=== PATIENT | male | born 1985 | race Caucasian/White ===

== ENCOUNTER 2020-03-10 14:44 | Inpatient (IN) | payer BC, SELFPAY ==
[~2020-03-10] VITALS: Ht 170.2 cm; Wt 79.4 kg
[2020-03-10 14:45] VITALS: BP 125/75
--- NOTE | 2020-03-10 14:45 | NUR ---
BIBA TAKEN TO BED 2
[2020-03-10] MEDS ORDERED: ONDANSETRON 4 MG/2 ML VIAL IVP ONE (14:50)
[2020-03-10] MEDS ORDERED: NACL 0.9% 1,000 ML IV ONE (14:50)
[2020-03-10 14:51] VITALS: BP 152/82
--- NOTE | 2020-03-10 15:01 | NUR ---
Pt biba c/o nausea, vomiting, sob, generalized weakness, chills, body aches since 2 am this morning. Denies fever, or cough. Patient reports he has hx of hypokalemia and takes Potassium supplement only, and he states potassium does not relief his sx this time. SKIN IS PINK/WARM/DRY; AAOX4; HR EVEN AND REGULAR; PT DENIES ANY FEVER, CP, SOB, OR COUGH AT THIS TIME; PATIENT STATES PAIN OF 5/10 AT THIS TIME; VSS; PATIENT POSITIONED FOR COMFORT; HOB ELEVATED; BEDRAILS UP X2; BED DOWN. ER MD MADE AWARE OF PT STATUS.
[2020-03-10] MEDS ORDERED: KETOROLAC 30 MG/ML VIAL IVP ONE (15:10)
[2020-03-10] MEDS ORDERED: LORazepam 2 MG/ML VIAL IVP ONE (15:10)
[2020-03-10 15:14] LABS: BASOPHILS % (AUTO) 0.1 % (0.0-2.0); EOSINOPHILS % (AUTO) 0.1 % (0.0-4.0); HEMATOCRIT 47.4 % (36-52); HEMOGLOBIN 16.1 g/dL (12.0-18.0); LYMPHOCYTES # (AUTO) 1.2 K/uL (2.0-11.5); LYMPHOCYTES % (AUTO) 6.2 % (20.5-51.1); MEAN CORPUSCULAR HEMOGLOBIN 31 pg (27-31); MEAN CORPUSCULAR HGB CONC 34 g/dL (33-37); MEAN CORPUSCULAR VOLUME 90.6 fL (80-94); NEUTROPHILS # (AUTO) 17.8 K/uL (1.8-7.7); NEUTROPHILS % (AUTO) 88.6 % (42.2-75.2); PLATELET COUNT (AUTO) 289 K/uL (140-450); RED BLOOD CELL COUNT(AUTO) 5.23 MIL/uL (4.20-6.10); RED CELL DISTRIBUTION WIDTH 12.9 % (11.6-13.7); WHITE BLOOD COUNT (AUTO) 20.1 K/uL (4.8-10.8)
[2020-03-10 15:26] LABS: ALBUMIN 4.5 g/dL (3.4-5.0); ASPARTATE AMINOTRANSFERASE 21 U/L (15-37); CARBON DIOXIDE 15.8 mmol/L (21-32); CHLORIDE 101 mmol/L (98-107); GFR ARICAN-AMERICAN 109 mL/min (>90); GLUCOSE 148 mg/dL (74-106); SODIUM SERUM 137 mmol/L (136-145); TOTAL BILIRUBIN 1.6 mg/dL (0.0-1.0); UREA NITROGEN, BLOOD 16 mg/dL (7-18)
[2020-03-10] MEDS ORDERED: MAG SULF 2000 MG/WATER PREMIX 50 ML IV ONE ×2 (15:35→16:25)
[2020-03-10] MEDS ORDERED: POTASSIUM CHLORIDE 10 MEQ TABER PO ONE (15:35)
[2020-03-10 15:36] LABS: ANION GAP 21.5 (8-16); POTASSIUM 1.3 mmol/L (3.5-5.1)
[2020-03-10 15:37] LABS: ACETAMINOPHEN < 0.5 ug/ml (10-30); SALICYLATE < 2.8 mg/dL (2.8-20.0)
[2020-03-10] MEDS ORDERED: NACL 0.9% 1,000 ML IV SCH (16:22)
[2020-03-10] MEDS ORDERED: ONDANSETRON 4 MG/2 ML VIAL IM/IVP PRN (16:25)
[2020-03-10] MEDS ORDERED: ACETAMINOPHEN 325 MG TAB PO PRN (16:25)
[2020-03-10] MEDS ORDERED: HYDROcodone/APAP 7.5/325 MG 1 TAB PO PRN (16:25)
[2020-03-10] MEDS ORDERED: POTASSIUM CHLORIDE 20% 40 MEQ/15 ML UDC PO ONE (16:25)
[2020-03-10] MEDS ORDERED: DOCUSATE SODIUM 100 MG GELCAP PO PRN (16:25)
--- NOTE | 2020-03-10 16:38 | NUR ---
ALEXANDRA HOLLAND - PHONE [phone]
--- NOTE | 2020-03-10 16:42 | NUR ---
Dr. Briones is evaluating pt at bedside.
[2020-03-10 16:58] LABS: PROTHROMBIN TIME 10.3 secs (10.8-13.4)
--- NOTE | 2020-03-10 17:00 | NUR ---
COVID SWAB AND TRE SWAB OBTAINED AND SENT TO THE LAB
[2020-03-10 17:03] LABS: CHOL/HDL RATIO 3.7 (1-4.5); FREE T4 (FREE THYROXINE) 2.57 ng/dL (0.76-1.46); HDL CHOLESTEROL 53 mg/dL (40-60); LDL (CALC) 135 mg/dL (60-100); LIPASE 83 U/L (73-393); THYROID STIMULATING HORMONE < 0.01 uIU/mL (0.34-3.74); TRIGLYCERIDES 43 mg/dL (30-150)
[2020-03-10 17:05] LABS: PHOSPHORUS 0.8 mg/dL (2.5-4.9)
--- NOTE | 2020-03-10 17:05 | NUR ---
Phosphorus 0.8--critical value received from lab. Dr Estrada made aware
--- NOTE | 2020-03-10 17:05 | NUR ---
PT POSITIONED COMFORTABLY FOR NAPPING. PT IS ON 2L OXYGEN VIA NASAL CANNULA. PT'S VSS. WILL CONITINUE MONITORING HIS VITAL SIGNS.
[2020-03-10 17:15] VITALS: BP 123/85
[2020-03-10] MEDS ORDERED: POTASSIUM PHOSPHATE 15 MM in NACL 0.9% 250 ML IV ONE (17:30)
[2020-03-10 17:48] LABS: LACTATE DEHYDROGENASE 320 U/L (85-227)
--- NOTE | 2020-03-10 17:52 | NUR ---
Talked to Evgeny pharmacist aware of the order for potassium, he is coming
[2020-03-10] MEDS ORDERED: POTA10TE30 PO (18:11)
[2020-03-10 19:02] LABS: ANION GAP 20.2 (8-16); CARBON DIOXIDE 16.3 mmol/L (21-32); CREATININE 0.9 mg/dL (0.6-1.3)
[2020-03-10 19:14] LABS: MAGNESIUM 2.8 mg/dL (1.8-2.4); PHOSPHORUS 1.2 mg/dL (2.5-4.9)
--- NOTE | 2020-03-10 19:25 | NUR ---
PT REQUESTING TO HAVE AT BEDSIDE, SPOKE WITH NURSING OVERNIGHT CASHIER AND CRN - UNABLE TO COMPLY WITH PT'S WISHES AT THIS TIME D/T COVID REGULATIONS. PT RECEIVED SECOND BAG OF MAG RIDER WHEN ADMITTED, UNABLE TO START K/PHOS IV REPLACEMENT D/T POTENTIAL INTERACTIONS. ER STARTED MG RIDERS WHILE AWAITING PHARMACY TO MAKE K/PHOS BAG. LAB CALLED RE: RECENT K LEVEL, ENDORSED TO [facility] NURSE. PT REQUESTING TO DRINK FLUIDS, UNABLE D/T CURRENT NPO ORDER, ENDORSED TO [facility] NURSE TO CALL DR. LEONARD RE: K LEVEL AND FLUID REQUESTS. PT CURRENTLY IN STABLE CONDITION.
--- NOTE | 2020-03-10 19:25 | NUR ---
RECEIVED PT AAOX4 , UNABLE TO MOVE DUE TO SEVERE WEAKNESS , NID - O2 SAT WNL , BUT THE RR IS 24 , - GIVE O2 AT 2LPM - REFER TO RT FOR FURTHER ASSESSMENT .IV SITE INTACT AND PATENT . SAFETY MEASURES IN PLACE . PLAN OF CARE DISCUSSED AND VERBALIZE UNDERSTANDING . ON TELE MONITOR . PT. AND HIS REQUESTING DISCHARGE AMA - WILL INFORM CHARGE NURSE .
[2020-03-10 19:28] LABS: POTASSIUM 1.5 mmol/L (3.5-5.1)
--- NOTE | 2020-03-10 19:28 | NUR ---
SEE BY RT - RT INCREASE O2 FROM 2 TO 4LPM/ NC - O2 INCREASE FROM 94% TO 98 % WHEN THE TIME O2 INH. INCREASED - WILL CONT. TO MONITOR . AND WILL COMMUNICATE TO DR. LEONARD REGARDING AMA.
[2020-03-10] MEDS ORDERED: POTASSIUM CHLORIDE 20% 40 MEQ/15 ML UDC PO SCH ×2 (20:00→21:00)
--- NOTE | 2020-03-10 21:00 | NUR ---
PT DISCHARGE PER AMA . W/ AMA WAIVER SIGNED BY PT'S - PT. UNABLE TO SIGN THE AMA WAIVER DUE TO SEVERE WEAKNESS OF THE MUSCLES . PT. BLOWER ROOM ATTENDANT BY AND RELATIVE.
[2020-03-11 09:18] LABS: T4 (THYROXINE) 15.8 ug/dL (4.5 - 12.0)
== END 2020-03-10 23:58 | disposition left against medical advice (07) | DRG 699 ==
LOC: MED 14:44 → MTU 16:29
PROVIDERS: ADMIT Emergency Medicine; ATTEND Emergency Medicine
DX: N25.89 Other disorders resulting from impaired renal tubular function (principal); E87.2 Acidosis; Z20.828 Contact with and (suspected) exposure to other viral communicable diseases; Z53.29 Procedure and treatment not carried out because of patient's decision for other reasons; E83.39 Other disorders of phosphorus metabolism; E87.6 Hypokalemia; E83.42 Hypomagnesemia; Z98.52 Vasectomy status
CPT/HCPCS: 36415; 71045; 80048; 80053; 82550; 83036; 83615; 83690; 83735; 83880; 84100; 84436; 84439; 84443; 84479; 85025; 85610; 85730; 93005; 96374; 99285; G0480; G0482; J1885; J2060; J2405; J3475; J7030; Q0092; U0003-CS